=== PATIENT | female | born 1965 | race African-American/Black ===

== ENCOUNTER 2017-03-28 21:10 | Emergency (ER) | payer OTHER ==
[~2017-03-28] VITALS: Ht 162.6 cm; Wt 78.0 kg
[~2017-03-28 21:10] MED LIST: HYDR-3511 PO; IRON PILLS PO
[2017-03-29 00:38] LABS: BASOPHILS % 0.5 % (0.0-2.0); EOSINOPHILS % 0.7 % (0.0-5.0); HEMATOCRIT. 33.3 % (36.0-48.0); HEMOGLOBIN. 11.1 g/dL (12.0-16.0); LYMPHOCYTES % 25.5 % (20.0-50.0); MEAN CORPUSCULAR HEMOGLOBIN 25.4 pg (28.0-32.0); MEAN CORPUSCULAR VOLUME 76.2 fL (81.0-99.0); MEAN PLATELET VOLUME 9.3 fl (7.4-10.4); MONOCYTES % 4.7 % (2.0-8.0); NEUTROPHILS % 68.6 % (40.0-76.0); PLATELET 193 x1000/uL (130-400); RED BLOOD CELL COUNT 4.37 mill/uL (4.2-5.4); RED CELL DISTRIBUTION WIDTH 19.4 % (11.6-14.6)
[2017-03-29 00:43] LABS: CHLORIDE 107 mEq/L (98-107)
[2017-03-29 00:49] LABS: CARBON DIOXIDE 30 mEq/L (21-32)
[2017-03-29] MEDS ORDERED: POTASSIUM CHLORIDE 20MEQ TABLET SR PO ONE (01:45)
[2017-03-29 01:56] VITALS: BP 145/77
== END 2017-03-29 01:59 | disposition home or self-care (01) ==
LOC: ER 21:10
DX: L25.9 Unspecified contact dermatitis, unspecified cause (principal); N61.0 Mastitis without abscess; E87.6 Hypokalemia; I10 Essential (primary) hypertension; R09.89 Other specified symptoms and signs involving the circulatory and respiratory systems; R05 Cough; J45.909 Unspecified asthma, uncomplicated; Z86.718 Personal history of other venous thrombosis and embolism; D57.1 Sickle-cell disease without crisis
CPT/HCPCS: 36415; 80048; 85025; 99284; Z7610

== ENCOUNTER 2018-11-14 16:47 | Emergency (ER) | payer MEDICAID ==
[~2018-11-14] VITALS: Ht 162.6 cm; Wt 77.0 kg
[2018-11-15] MEDS ORDERED: PREDNISONE 20MG TABLET PO STA (00:35)
[2018-11-15] MEDS ORDERED: IPRATROPIUM BROMIDE (0.02%) 0.5MG/2.5ML NEB HHN STA (00:35)
[2018-11-15] MEDS ORDERED: ALBUTEROL (0.083%) 2.5MG/3ML NEB HHN STA (00:35)
[2018-11-15 01:18] LABS: CHLORIDE 110 mEq/L (98-107)
[2018-11-15 01:20] LABS: PROTHROMBIN TIME 10.2 sec (9.1-11.1)
[2018-11-15 03:46] VITALS: BP 135/66
== END 2018-11-15 03:48 | disposition home or self-care (01) ==
LOC: ER 16:47
DX: J45.901 Unspecified asthma with (acute) exacerbation (principal); I10 Essential (primary) hypertension; S80.02XA Contusion of left knee, initial encounter; W19.XXXA Unspecified fall, initial encounter; Y93.9 Activity, unspecified; Y92.9 Unspecified place or not applicable
CPT/HCPCS: 36415; 80053; 85610; 93970; 94640; 99284; J7512; J7611

== ENCOUNTER 2019-04-15 14:06 | Emergency (ER) | payer MEDICAID, OTHER ==
[~2019-04-15] VITALS: Ht 172.7 cm; Wt 82.0 kg
[~2019-04-15 14:06] MED LIST changes: -HYDR-3511 PO; +HYDR-3512 PO
[2019-04-15 14:08] VITALS: BP 115/92
== END 2019-04-15 18:17 | disposition left against medical advice (07) ==
LOC: ER 14:06
DX: R05 Cough (principal); Z53.21 Procedure and treatment not carried out due to patient leaving prior to being seen by health care provider

== ENCOUNTER 2019-07-04 20:08 | Emergency (ER) | payer MEDICAID ==
[~2019-07-04] VITALS: Ht 162.6 cm; Wt 77.0 kg
[2019-07-05] MEDS ORDERED: SODIUM CHLORIDE 0.9% 1,000 ML IV ONE (01:18)
[2019-07-05] MEDS ORDERED: ONDANSETRON HCL 4MG/2ML INJ IV STA (01:18)
[2019-07-05 01:56] LABS: CLARITY URINE CLEAR (CLEAR); COLOR URINE DARK YELLOW (YELLOW); KETONES URINE 1+ (NEGATIVE); LEUKOCYTE ESTERASE URINE NEGATIVE (NEGATIVE); NITRITE URINE NEGATIVE (NEGATIVE); OCCULT BLOOD URINE 2+ (NEGATIVE); PH URINE 6.5 (4.5-8.0); PROTEIN URINE 4+ (NEGATIVE); SPECIFIC GRAVITY URINE 1.019 (1.005-1.030)
[2019-07-05 01:57] LABS: CHLORIDE 110 mEq/L (98-107)
[2019-07-05 02:03] LABS: INR 3.5; PROTHROMBIN TIME 33.9 sec (9.6-11.0)
[2019-07-05 02:06] LABS: BASOPHILS % 0.7 % (0.0-2.0); EOSINOPHILS % 0.1 % (0.0-5.0); HEMOGLOBIN. 12.2 g/dL (12.0-16.0); LYMPHOCYTES % 15.5 % (20.0-50.0); MEAN CORPUSCULAR HEMOGLOBIN 24.8 pg (28.0-32.0); MEAN PLATELET VOLUME 10.3 fl (7.4-10.4); MONOCYTES % 4.7 % (2.0-8.0); PLATELET 200 x1000/uL (130-400); RED BLOOD CELL COUNT 4.93 mill/uL (4.2-5.4); RED CELL DISTRIBUTION WIDTH 19.3 % (11.6-14.6)
[2019-07-05] MEDS ORDERED: POTASSIUM CHLORIDE 20MEQ TABLET SR PO NR (02:15)
[2019-07-05 03:30] VITALS: BP 107/65
== END 2019-07-05 04:28 | disposition home or self-care (01) ==
LOC: ER 20:08
DX: R11.2 Nausea with vomiting, unspecified (principal); R31.9 Hematuria, unspecified; E87.6 Hypokalemia; J45.909 Unspecified asthma, uncomplicated; E78.00 Pure hypercholesterolemia, unspecified
CPT/HCPCS: 36415; 80053; 81003; 83690; 85025; 85610; 93005; 96374; 99284; J2405; J7030